=== PATIENT | female | born 1990 | race Two or more races ===

== ENCOUNTER 2020-10-31 15:06 | Emergency (ER) | payer MEDICAID ==
[~2020-10-31] VITALS: Ht 162.6 cm; Wt 61.7 kg
[2020-10-31] MEDS ORDERED: SODIUM CHLORIDE 0.9% 1,000 ML IV ONE (16:00)
[2020-10-31 16:24] LABS: Urine Bacteria NONE SEEN /hpf (None Seen); Urine Blood Negative /uL (Negative); Urine Mucus FEW (None Seen); Urine Specific Gravity 1.032 (1.001-1.035); Urine WBC 7 /hpf (0 - 5)
[2020-10-31 16:32] LABS: Amphetamine Screen, Urine NEGATIVE (NEGATIVE); Barbiturate Scree,Urine NEGATIVE (NEGATIVE); Benzodiazephine Screen, Urine NEGATIVE (NEGATIVE); Cannabinoid Screen, Urine POSITIVE (NEGATIVE); Cocaine Screen, Urine NEGATIVE (NEGATIVE); Opiate Scree,Urine NEGATIVE (NEGATIVE); Phencyclidine Screen, Urine NEGATIVE (NEGATIVE)
[2020-10-31 17:42] LABS: Basophils # (auto) 0 10 ^3/uL (0-0.2); Basophils % (auto) 0.4 % (0.0-2.0); Eosinophils # (auto) 0 10 ^3/uL (0-0.8); Hematocrit 38.5 % (36.0-46.0); Hemoglobin 13.1 g/dL (12.2-16.2); Lymphocytes # (auto) 0.8 10 ^3/uL (0.4-5.4); Lymphocytes % (auto) 19.7 % (10.0-50.0); Mean Corpuscular Hemoglobin 30.4 pg (28.0-32.0); Mean Corpuscular Hgb Conc. 34.1 g/dL (32.0-36.0); Mean Corpuscular Volume 89.2 fL (80.0-100.0); Monocytes # (auto) 0.4 10 ^3/uL (0-1.3); Monocytes % (auto) 9.1 % (0.0-12.0); Neutrophils % (auto) 70.8 % (37.0-80.0); Platelet Count (auto) 114 10^3/uL (140-450); Red Blood Cells 4.32 10^6/uL (4.0-5.20); Red Cell Distribution Width 13.5 % (11.8-14.3); White Blood Cell 4.2 10^3/uL (4.4-10.8)
[2020-10-31 17:56] VITALS: BP 108/67
[2020-10-31 17:56] LABS: Anion Gap 8 (5-15); BUN/Creatinine Ratio 17.4; Blood Urea Nitrogen 12 mg/dL (7-18); Calcium 8.3 mg/dL (8.5-10.1); Carbon Dioxide 26 mmol/L (21-32); Chloride 102 mmol/L (98-107); GFR African American 128 mL/min; GFR Non-African American 105 mL/min; Glucose 87 mg/dL (74-106); Potassium 3.2 mmol/L (3.5-5.1); Sodium 136 mmol/L (136-145)
[2020-10-31] MEDS ORDERED: POTASSIUM CHL 20 Meq TABLET PO ONE (18:15)
== END 2020-10-31 18:36 | disposition home or self-care (01) ==
LOC: ER 15:06
DX: F41.9 Anxiety disorder, unspecified (principal); J06.9 Acute upper respiratory infection, unspecified; E86.0 Dehydration
CPT/HCPCS: 36415; 71045; 80048; 80307; 81001; 81025; 84443; 84484; 85025; 96360; 99284; J7030

== ENCOUNTER 2024-06-27 15:11 | Emergency (ER) | payer BC ==
[~2024-06-27] VITALS: Ht 162.6 cm; Wt 73.4 kg
[2024-06-27 16:57] VITALS: BP 138/75; PULSE 64; RESP 16; TEMP 98.4; O2SAT 99
[2024-06-27] MEDS: HYDROcodone-ACET 10/325MG TAB PO ONE (17:19)
[2024-06-27] MEDS: methylPREDNISolone SOD SUCC 125 MG/2 ML VL IM ONE (17:20)
[2024-06-27 17:27] LABS: Urine Bacteria None Seen /hpf (None Seen)
[2024-06-27 18:58] LABS: Urine Blood Negative /uL (Negative); Urine Clarity Clear (Clear); Urine Color Light-Yellow (Yellow); Urine Mucus FEW (None Seen); Urine Protein, UAD Negative (Negative); Urine Specific Gravity 1.011 (1.001-1.035); Urine Urobilinogen Normal (Negative); Urine WBC <1 /hpf (0 - 5); Urine pH 5.5 (5.0-9.0)
== END 2024-06-27 17:10 | disposition home or self-care (01) ==
LOC: ER 15:15
DX: M06.9 Rheumatoid arthritis, unspecified (principal); F41.9 Anxiety disorder, unspecified; F12.90 Cannabis use, unspecified, uncomplicated
CPT/HCPCS: 81001; 96372; 99283; J2919

== ENCOUNTER 2024-07-21 09:37 | Emergency (ER) | payer BC ==
[~2024-07-21] VITALS: Ht 162.6 cm; Wt 74.3 kg
[2024-07-21 10:51] VITALS: BP 136/88; PULSE 67; RESP 16; TEMP 98.3; O2SAT 99
[2024-07-21] MEDS: KETOROLAC TROMETH 60MG/2ML VIAL IM ONE (11:23)
[2024-07-21] MEDS: methylPREDNISolone SOD SUCC 125 MG/2 ML VL IM ONE (11:24)
[2024-07-21] MEDS ORDERED: PRED20TA2 PO (11:42)
[2024-07-21] MEDS ORDERED: IBUP-1456 PO (11:42)
== END 2024-07-21 11:51 | disposition home or self-care (01) ==
LOC: ER 09:37
DX: M06.842 Other specified rheumatoid arthritis, left hand (principal); M06.841 Other specified rheumatoid arthritis, right hand; M06.861 Other specified rheumatoid arthritis, right knee; M06.872 Other specified rheumatoid arthritis, left ankle and foot; F41.9 Anxiety disorder, unspecified; F15.90 Other stimulant use, unspecified, uncomplicated; Z79.1 Long term (current) use of non-steroidal anti-inflammatories (NSAID); Z79.52 Long term (current) use of systemic steroids
CPT/HCPCS: 96372; 99284; J1885; J2919